=== PATIENT | male | born 1945 | race Caucasian/White ===

== ENCOUNTER → 2017-01-10 | Outpatient (CLI) | payer BC ==
[~2017-01-10] MED LIST: AMLO1TAB95 PO; ASPI-39 PO; CIME400T PO; INDA2.5T PO; LOVA10TA PO; MELO-150 PO; MULT-138 PO; TAMS0.4C2 PO
--- NOTE | 2017-01-10 15:07 | RAD ---
EXAM: Renal sonogram. HISTORY: Renal cysts. TECHNIQUE: Sonographic imaging of the kidneys and bladder was performed. COMPARISON: MRI dated 06/07/2016. FINDINGS: The exam is limited due to bowel gas and body habitus. The right kidney measures 12.8 cm cfgm-ga-mkme and the left kidney measures 12.1 cm lquv-gi-ucik. The right renal pelvis appears dilated. There is a 3.7 cm cyst within the mid zone of the left kidney. The aorta and inferior vena cava are predominant obscured due to bowel gas. The ureteral jets are both seen. IMPRESSION: 1. 3.7 cm left renal cyst. This is similar compared to the prior MRI, allowing for differences in imaging modality. The additional smaller bilateral renal cysts demonstrated on the prior study are not seen sonographically. Also, a 9 mm indeterminate lesion within the right kidney on the prior CT is not seen sonographically. This remains indeterminate. 2. Prominent right renal pelvis, possibly due to slight pelviectasis. This is not within limits to suggest hydronephrosis.
== END | disposition home or self-care (01) ==
LOC: US 13:32
PROVIDERS: ATTEND Urology
DX: N28.1 Cyst of kidney, acquired (principal)
CPT/HCPCS: 76770

== ENCOUNTER → 2017-08-31 | Outpatient (CLI) | payer BC, MEDICARE ==
[~2017-08-31] MED LIST changes: -MELO-150 PO; +MELO15TA23 PO
--- NOTE | 2017-08-31 10:12 | CARD ---
APPROVED REPORT EXAM: Two-dimensional and M-mode echocardiogram with Doppler and color Doppler. Other Information Quality : Average Rhythm : NSR INDICATION Abnormal ECG 2D DIMENSIONS RVDd3.5 (2.9-3.5cm)Left Atrium(2D)3.9 (1.6-4.0cm) IVSd1.0 (0.7-1.1cm)Aortic Root(2D)3.1 (2.0-3.7cm) LVDd5.1 (3.9-5.9cm)LVOT Diameter2.0 (1.8-2.4cm) PWd1.0 (0.7-1.1cm)LVDs3.4 (2.5-4.0cm) FS (%) 32.9 %SV74.3 ml LVEF(%)61.1 (>50%) Aortic Valve AoV Peak [place].268.9cm/sAoV VTI69.3cm AO Peak GR.28.9mmHgLVOT Peak [place].103.6cm/s LVOT VTI 28.62cmAO Mean GR.15mmHg CONCEPCIÓN (VTI)1.49pk1XJ P 1/2 Pdny908rz Mitral Valve MV E Uktlowhi47.2cm/sMV DECEL NGQP429qj MV A Ugkfdsiz28.0cm/sMV YUT19zk E/A Ratio0.9MV A Mfnqvqhr219dn MVA (PHT)3.42cm2 TDI E/Lateral E'10.8E/Medial E'12.9 Pulmonary Valve PV Peak Kpcicxul947.9cm/sPV Peak Grad.6mmHg RVOT VTI29.9cm Pulmonary Vein S1 Vjrojwzh65.2cm/sD2 Iqysrlcs47.8cm/s LEFT VENTRICLE The left ventricle is normal size. There is normal left ventricular wall thickness. Left ventricle sy stolic function is normal. The Ejection Fraction is 60-65%. There is normal LV segmental wall motion. The left ventricular diastolic function and filling is normal for age. There is no ventricular septa l defect visualized. RIGHT VENTRICLE The right ventricle is normal size. The right ventricular systolic function is normal. ATRIA The left atrium size is normal. The right atrium size is normal. The interatrial septum is intact wit h no evidence for an atrial septal defect or patent foramen ovale as noted on 2-D or Doppler imaging. AORTIC VALVE The aortic valve is calcified and displays decreased opening. Doppler and Color Flow revealed mild ao rtic regurgitation. Calculated aortic valve area is 1.3 cm2 with maximum pressure gradient of 29 mmHg and mean pressure gradient of 15 mmH. There is moderate valvular aortic stenosis. MITRAL VALVE Mitral annular calcification is mild. There is no mitral valve stenosis. Doppler and Color Flow revea led mild mitral regurgitation. TRICUSPID VALVE The tricuspid valve is normal in structure and function. Doppler and Color Flow revealed no tricuspid valve regurgitation noted. There is no tricuspid valve stenosis. PULMONIC VALVE The pulmonic valve is not well visualized. Doppler and Color Flow revealed no pulmonic valvular regur gitation. There is no pulmonic valvular stenosis. GREAT VESSELS The aortic root is normal in size. Normal pulmonary venous flow (Doppler). The IVC is normal in size and collapses >50% with inspiration. PERICARDIAL EFFUSION There is no evidence of significant pericardial effusion. Critical Notification Critical Value: No <Conclusion> The left ventricle is normal size. Left ventricle systolic function is normal. The Ejection Fraction is 60-65%. The aortic valve is calcified and displays decreased opening. Calculated aortic valve area is 1.3 cm2 with maximum pressure gradient of 29 mmHg and mean pressure g radient of 15 mmH. There is moderate valvular aortic stenosis. Doppler and Color Flow revealed mild aortic regurgitation. Doppler and Color Flow revealed mild mitral regurgitation. Doppler and Color Flow revealed no tricuspid valve regurgitation noted.
== END | disposition home or self-care (01) ==
LOC: ECHO 07:16
PROVIDERS: ATTEND Nurse Practitioner Occupational Health
DX: I08.0 Rheumatic disorders of both mitral and aortic valves (principal); R94.31 Abnormal electrocardiogram [ECG] [EKG]
CPT/HCPCS: 93306

== ENCOUNTER → 2018-04-04 | Outpatient (CLI) | payer BC | END | disposition home or self-care (01) | LOC: ECHO 07:19 | DX: I08.2 Rheumatic disorders of both aortic and tricuspid valves (principal) | CPT/HCPCS: 93306 ==

== ENCOUNTER → 2019-04-03 | Outpatient (CLI) | payer OTHER ==
--- NOTE | 2019-04-03 09:09 | CARD ---
MR#: [id number] Date of Study: 04/03/2019 Ordering Physician: SUSHMA ESTEBAN, Referring Physician: SUSHMA ESTEBAN, Tech: Yessica Manning [facility] APPROVED REPORT EXAM: Two-dimensional and M-mode echocardiogram with Doppler and color Doppler. Other Information Quality : AverageHR: 55bpm Rhythm : Bradycardia INDICATION 2D DIMENSIONS RVDd3.7 (2.9-3.5cm)Left Atrium(2D)4.3 (1.6-4.0cm) IVSd1.1 (0.7-1.1cm)Aortic Root(2D)3.1 (2.0-3.7cm) LVDd5.4 (3.9-5.9cm)LVOT Diameter2.1 (1.8-2.4cm) PWd1.2 (0.7-1.1cm)LVDs3.8 (2.5-4.0cm) FS (%) 30.1 %SV80.4 ml LVEF(%)56.8 (>50%) M-Mode DIMENSIONS Left Atrium(MM)4.17 (2.5-4.0cm)Aortic Root2.91 (2.2-3.7cm) Aortic Valve AoV Peak [place].315.5cm/sAoV VTI74.4cm AO Peak GR.39.8mmHgLVOT Peak [place].109.2cm/s AO Mean GR.22mmHgAVA (VMAX)1.18cm2 CONCEPCIÓN (VTI)1.58mk9MW P 1/2 Mydo172tt Mitral Valve MV E Gbphvhiz61.6cm/sMV E Peak Gr.6mmHg MV DECEL RSDE750xbFE A Ggxujsji382.5cm/s MV E Mean Gr.2mmHgE/A Ratio0.8 MV A Ncnpdgry055gv Pulmonary Valve PV Peak Tiyosmge715.6cm/s Tricuspid Valve TR P. Rlxvouia035xy/sRAP CXYZJLUS2zaEd TR Peak Gr.01vrUuZRFX99ftTf LEFT VENTRICLE The left ventricle is normal size. There is mild concentric left ventricular hypertrophy. The left ve ntricular systolic function is normal and the ejection fraction is within normal range. The Ejection Fraction is 55-60%. There is normal LV segmental wall motion. Transmitral Doppler flow pattern is Gra de I-abnormal relaxation pattern. RIGHT VENTRICLE The right ventricle is mildly dilated. There is normal right ventricular wall thickness. The right ve ntricular systolic function is normal. ATRIA The left atrium is mildly dilated. The right atrium is mildly dilated. The interatrial septum is inta ct with no evidence for an atrial septal defect or patent foramen ovale as noted on 2-D or Doppler im aging. AORTIC VALVE The aortic valve is calcified and displays decreased opening. The aortic valve is trileaflet. Doppler and Color Flow revealed mild aortic regurgitation. There is moderate valvular aortic stenosis. Calcu lated aortic valve area is 1.2 cm2 with maximum pressure gradient of 40 mmHg and mean pressure gradie nt of 22 mmHg. MITRAL VALVE The mitral valve is thickened but opens well. There is no evidence of mitral valve prolapse. There is no mitral valve stenosis. Doppler and Color-flow revealed mild mitral regurgitation. TRICUSPID VALVE The tricuspid valve is normal in structure and function. Doppler and Color Flow revealed trace tricus pid regurgitation. The PA pressure was estimated at 25 mmHg. There is no tricuspid valve prolapse or vegetation. There is no tricuspid valve stenosis. PULMONIC VALVE The pulmonic valve is not well visualized. GREAT VESSELS The aortic root is normal in size. The ascending aorta is normal in size. The IVC is normal in size a nd collapses >50% with inspiration. PERICARDIAL EFFUSION There is no evidence of significant pericardial effusion. Critical Notification Critical Value: No <Conclusion> The left ventricular systolic function is normal and the ejection fraction is within normal range. Th e Ejection Fraction is 55-60%. There is normal LV segmental wall motion. There is moderate valvular aortic stenosis. Calculated aortic valve area is 1.2 cm2 with maximum pre ssure gradient of 40 mmHg and mean pressure gradient of 22 mmHg. Signed by : Sushma Esteban, Electronically Approved : 04/03/2019 09:09:15
== END | disposition home or self-care (01) ==
LOC: ECHO 07:51
PROVIDERS: ATTEND Internal Medicine Cardiovascular Disease
DX: I08.0 Rheumatic disorders of both mitral and aortic valves (principal)
CPT/HCPCS: 93306

== ENCOUNTER → 2019-05-01 | Outpatient (CLI) | payer OTHER ==
--- NOTE | 2019-05-01 12:57 | RAD ---
MR#: [id number] Date of Study: 05/01/2019 Ordering Physician: SUSHMA ESTEBAN Referring Physician: ZEKE DOMINGUEZ Tech: APPROVED REPORT Test Type: Exercise Stress Nurse/Tech: Aida Pelaez RN Test Indications: Aortic Stenosis Cardiac History: Hypertension,former smoker Medications: See Electronic Medical Record Medical History: See Electronic Medical Record Resting ECG: SB with BBB Resting Heart Rate: 53 bpm Resting Blood Pressure: 140/60mmHg Pretest Chest Pain: No chest pain Nurse/Tech Notes S1,S2 with regurgitation. Lungs are clear to auscultation. Consent: The procedure was explained to the patient in lay terms. Informed consent was witnessed. Ismael eout was entered into [facility] [facility]. History and Stress Test performed by Marta Bocanegra, RT (R) (N) Stress Symptoms Claudication,Fatigue POST EXERCISE Reason for Termination: Reached target heart rate, Fatigue Target HR: Yes Max HR: 141 bpm 113% of Maximum Predicted HR: 124 bpm Exercise duration: 3:40 min:sec, 2 Stage Exercise capacity: 7.0METs Max Blood Pressure: 175/64mmHg Blood Pressure response to exercise: Normal blood pressure response during stress. Heart Rate response to exercise: WNL Chest Pain: No. Arrhythmia: No. ST Change: Yes. non diagnostic INTERPRETATION Stress EKG Conclusion: Baseline EKG showed sinus rhythm. Mild Horizontal ST depression inferolateral leads suspicious but does not meet diagnostic criteria for ischemia. No arrhythmias. Conclusion 1. Treadmill exercise stress electrocardiogram showed mild ST depressions inferolateral leads suspici ous but does not meet diagnostic criteria for ischemia. Patient had poor activity tolerance. Recommen d imaging study. Signed by : Fredi Marie, Electronically Approved : 05/01/2019 12:57:10
== END | disposition home or self-care (01) ==
LOC: NM 07:55
PROVIDERS: ATTEND Internal Medicine Cardiovascular Disease
DX: I35.0 Nonrheumatic aortic (valve) stenosis (principal); I10 Essential (primary) hypertension; Z87.891 Personal history of nicotine dependence
CPT/HCPCS: 93017

== ENCOUNTER → 2020-03-05 | Outpatient (CLI) | payer MEDICARE ==
--- NOTE | 2020-03-05 13:56 | CARD ---
MR#: [id number] Date of Study: 03/05/2020 Ordering Physician: SUSHMA ESTEBAN, Referring Physician: USSHMA ESTEBAN, Tech: [facility] APPROVED REPORT EXAM: Two-dimensional and M-mode echocardiogram with Doppler and color Doppler. Other Information Quality : Good INDICATION Hypertension/HCVD 2D DIMENSIONS RVDd2.7 (2.9-3.5cm)Left Atrium(2D)4.4 (1.6-4.0cm) IVSd1.9 (0.7-1.1cm)Aortic Root(2D)3.1 (2.0-3.7cm) LVDd5.1 (3.9-5.9cm)LVOT Diameter2.1 (1.8-2.4cm) PWd1.4 (0.7-1.1cm)LVDs4.0 (2.5-4.0cm) FS (%) 20.3 %SV49.9 ml LVEF(%)55.0 (>50%) Aortic Valve AoV Peak [place].331.5cm/sAoV VTI77.0cm AO Peak GR.44.0mmHgLVOT Peak [place].161.2cm/s AO Mean GR.24mmHgAVA (VTI)1.70cm2 AI P 1/2 Mxam685ht Mitral Valve MV E Yprlopql525.2cm/sMV DECEL JMZD924wa MV A Mnfhflah596.9cm/sE/A Ratio0.8 Tricuspid Valve TR P. Gryapcjo751vf/sRAP LMCQMCRG7bbPo TR Peak Gr.44nhGiWPWT61amAm Pulmonary Vein S1 Lwtqwtta87.5cm/sD2 Wqmyrmsg62.7cm/s LEFT VENTRICLE The left ventricle is normal size. There is normal left ventricular wall thickness. The left ventricu lar systolic function is normal. The Ejection Fraction is 60%. There is normal LV segmental wall blanca on. Transmitral Doppler flow pattern is Grade I-abnormal relaxation pattern. RIGHT VENTRICLE The right ventricle is normal size. The right ventricular systolic function is normal. ATRIA The left atrium is mildly dilated. The right atrium is mildly dilated. The interatrial septum is inta ct with no evidence for an atrial septal defect or patent foramen ovale as noted on 2-D or Doppler im aging. AORTIC VALVE The aortic valve is severely calcified and displays decreased opening; possibly bicuspid. Doppler and Color Flow revealed mild aortic regurgitation. Moderate aortic stenosis with maximum pressure gradie nt of 44 mmHg and mean pressure gradient of 24 mmHg. MITRAL VALVE The mitral valve is normal in structure and function. There is no evidence of mitral valve prolapse. There is no mitral valve stenosis. Doppler and Color-flow revealed trace mitral regurgitation. TRICUSPID VALVE The tricuspid valve is normal in structure and function. Doppler and Color Flow revealed trace tricus pid regurgitation. The PA pressure was estimated at 20 mmHg. There is no tricuspid valve stenosis. PULMONIC VALVE The pulmonic valve is not well visualized. Doppler and Color Flow revealed no pulmonic valvular regur gitation. There is no pulmonic valvular stenosis. GREAT VESSELS The aortic root is normal in size. The ascending aorta is normal in size. The IVC is normal in size a nd collapses >50% with inspiration. PERICARDIAL EFFUSION There is no evidence of significant pericardial effusion. Critical Notification Critical Value: No <Conclusion> The left ventricular systolic function is normal. The Ejection Fraction is 60%. There is normal LV segmental wall motion. Transmitral Doppler flow pattern is Grade I-abnormal relaxation pattern. Moderate aortic stenosis with maximum pressure gradient of 44 mmHg and mean pressure gradient of 24 m mHg. Mild aortic regurgitation. Trace mitral regurgitation. Trace tricuspid regurgitation. The PA pressure was estimated at 20 mmHg. There is no evidence of significant pericardial effusion. Signed by : Fredi Marie, Electronically Approved : 03/05/2020 13:55:40
== END | disposition home or self-care (01) ==
LOC: ECHO 12:34
PROVIDERS: ATTEND Internal Medicine Cardiovascular Disease
DX: I35.1 Nonrheumatic aortic (valve) insufficiency (principal); I11.9 Hypertensive heart disease without heart failure
CPT/HCPCS: 93306

== ENCOUNTER → 2020-08-21 | Outpatient (CLI) | payer MEDICARE ==
--- NOTE | 2020-08-21 14:38 | CARD ---
MR#: [id number] Date of Study: 08/21/2020 Ordering Physician: SUSHMA ESTEBAN, Referring Physician: SUSHMA ESTEBAN, Tech: Nyla Richardson APPROVED REPORT EXAM: Two-dimensional and M-mode echocardiogram with Doppler and color Doppler. INDICATION Aortic Valve Disease RISK FACTORS Hypertension Hyperlipidemia 2D DIMENSIONS RVDd3.8 (2.9-3.5cm)Left Atrium(2D)4.0 (1.6-4.0cm) IVSd1.1 (0.7-1.1cm)Aortic Root(2D)3.0 (2.0-3.7cm) LVDd5.9 (3.9-5.9cm)LVOT Diameter2.0 (1.8-2.4cm) PWd1.2 (0.7-1.1cm)LVDs2.8 (2.5-4.0cm) FS (%) 52.0 %SV143.1 ml Aortic Valve AoV Peak [place].261.3cm/sAoV VTI62.3cm AO Peak GR.27.3mmHgLVOT Peak [place].129.3cm/s LVOT VTI 35.15cmAO Mean GR.16mmHg CONCEPCIÓN (VMAX)1.28sa2LEP (VTI)1.80cm2 Mitral Valve MV E Szlvoqcr872.2cm/sMV DECEL JOKI353sq MV A Vgchqqwk019.0cm/sMV RJY30iv E/A Ratio1.0MVA (PHT)3.57cm2 TDI E/Lateral E'16.0E/Medial E'11.5 Pulmonary Valve PV Peak Irhgxqrn146.8cm/sPV Peak Grad.5mmHg Tricuspid Valve TR P. Qfddbjrz980wx/sRAP ZMPBHQLU6laWx TR Peak Gr.28mmHg Pulmonary Vein S1 Bfqvtqyv08.4cm/sD2 Tbcaagzk02.0cm/s PVa cuogjhwl320gxhg LEFT VENTRICLE The left ventricle is normal size. There is borderline to mild concentric left ventricular hypertroph y. The left ventricular systolic function is normal and the ejection fraction is within normal range. The Ejection Fraction is 55-60%. There is normal LV segmental wall motion. Transmitral Doppler flow pattern is Grade II-pseudonormal filling dynamics. RIGHT VENTRICLE The right ventricle is normal size. There is normal right ventricular wall thickness. The right ventr icular systolic function is normal. ATRIA The left atrium is borderline dilated. The right atrium size is normal. The interatrial septum is int act with no evidence for an atrial septal defect or patent foramen ovale as noted on 2-D or Doppler i maging. AORTIC VALVE The aortic valve is calcified and displays decreased opening. Doppler and Color Flow revealed trace a ortic regurgitation. Calculated aortic valve area is 36 cm2 with maximum pressure gradient of 19 mmHg and mean pressure gradient of 1.74 mmHg. There is mild valvular aortic stenosis. MITRAL VALVE The mitral valve is thickened but opens well. There is no evidence of mitral valve prolapse. There is no mitral valve stenosis. Doppler and Color-flow revealed trace mitral regurgitation. TRICUSPID VALVE The tricuspid valve is normal in structure and function. Doppler and Color Flow revealed trace tricus pid regurgitation with an estimated PAP of 31 mmHg. There is no tricuspid valve stenosis. PULMONIC VALVE The pulmonic valve is not well visualized. Doppler and Color Flow revealed no pulmonic valvular regur gitation. GREAT VESSELS The aortic root is normal in size. The IVC was not well visualized. PERICARDIAL EFFUSION There is no evidence of significant pericardial effusion. Critical Notification Critical Value: No <Conclusion> The left ventricle is normal size. The left ventricular systolic function is normal and the ejection fraction is within normal range. The Ejection Fraction is 55-60%. There is borderline to mild concentric left ventricular hypertrophy. Doppler and Color Flow revealed trace aortic regurgitation. Calculated aortic valve area is 36 cm2 with maximum pressure gradient of 19 mmHg and mean pressure gr adient of 1.74 mmHg. There is mild valvular aortic stenosis. Doppler and Color-flow revealed trace mitral regurgitation. Doppler and Color Flow revealed trace tricuspid regurgitation with an estimated PAP of 31 mmHg. Signed by : Qamar Purcell MD Electronically Approved : 08/21/2020 14:37:40
== END ==
LOC: ECHO 10:45
PROVIDERS: ATTEND Internal Medicine Cardiovascular Disease
DX: I35.1 Nonrheumatic aortic (valve) insufficiency (principal); I51.7 Cardiomegaly
CPT/HCPCS: 93306

== ENCOUNTER → 2021-08-18 | Outpatient (CLI) | payer MEDICARE ==
--- NOTE | 2021-08-18 16:34 | CARD ---
MR#: [id number] Date of Study: 08/18/2021 Ordering Physician: SUSHMA ESTEBAN, Referring Physician: SUSHMA ESTEBAN, Tech: Nyla Richardson, [facility] APPROVED REPORT EXAM: Two-dimensional and M-mode echocardiogram with Doppler and color Doppler. Other Information Quality : AverageHR: 51bpm INDICATION Aortic Valve Disease RISK FACTORS Hypertension Hyperlipidemia 2D DIMENSIONS RVDd3.7 (2.9-3.5cm)Left Atrium(2D)4.1 (1.6-4.0cm) IVSd1.0 (0.7-1.1cm)Aortic Root(2D)3.1 (2.0-3.7cm) LVDd5.4 (3.9-5.9cm)LVOT Diameter2.1 (1.8-2.4cm) PWd1.3 (0.7-1.1cm)LVDs3.5 (2.5-4.0cm) FS (%) 35.4 %SV90.2 ml LVEF(%)64.3 (>50%) Aortic Valve AoV Peak [place].324.3cm/sAoV VTI74.6cm AO Peak GR.42.1mmHgLVOT Peak [place].113.2cm/s LVOT VTI 29.95cmAO Mean GR.23mmHg CONCEPCIÓN (VTI)1.76fj4EX P 1/2 Txhe706zu Mitral Valve MV E Fvsejukx67.0cm/sMV DECEL ZFOY004qa MV A Bsubgryw285.3cm/sMV E Mean Gr.2mmHg MV BYT31atA/A Ratio0.9 MVA (PHT)3.61cm2 TDI E/Lateral E'12.7E/Medial E'17.0 Pulmonary Valve PV Peak Gfkkcdux875.4cm/sPV Peak Grad.4mmHg Tricuspid Valve TR P. Ojzbmulf671wn/sRAP ZUYZMEFK0ltHr TR Peak Gr.83awVzFZDV82nnGn Pulmonary Vein S1 Hcurmyap26.8cm/sD2 Kgntlqvv87.2cm/s PVa gatwbdgz543psjj LEFT VENTRICLE The left ventricle is normal size. There is mild to moderate concentric left ventricular hypertrophy. The left ventricular systolic function is normal. The Ejection Fraction is 55-60%. There is normal L V segmental wall motion. Transmitral Doppler flow pattern is Grade I-abnormal relaxation pattern. RIGHT VENTRICLE The right ventricle is normal size. There is normal right ventricular wall thickness. The right ventr icular systolic function is normal. ATRIA The left atrium size is normal. The right atrium size is normal. The interatrial septum is intact wit h no evidence for an atrial septal defect or patent foramen ovale as noted on 2-D or Doppler imaging. AORTIC VALVE The aortic valve is calcified and displays decreased opening. Doppler and Color Flow revealed mild ao rtic regurgitation. Calculated aortic valve area is 1.43 cm2 with maximum pressure gradient of 47 mmH g and mean pressure gradient of 25 mmHg. There is moderate valvular aortic stenosis. MITRAL VALVE The mitral valve is normal in structure and function. There is no evidence of mitral valve prolapse. There is no mitral valve stenosis. Doppler and Color-flow revealed trace mitral regurgitation. TRICUSPID VALVE The tricuspid valve is normal in structure and function. Doppler and Color Flow revealed trace tricus pid regurgitation with an estimated PAP of 35 mmHg. There is no tricuspid valve stenosis. PULMONIC VALVE The pulmonic valve is not well visualized. Doppler and Color Flow revealed no pulmonic valvular regur gitation. GREAT VESSELS The aortic root is normal in size. The ascending aorta is normal in size. The IVC was not well visual ized. PERICARDIAL EFFUSION There is no evidence of significant pericardial effusion. Critical Notification Critical Value: No <Conclusion> The left ventricular systolic function is normal. The Ejection Fraction is 55-60%. There is normal LV segmental wall motion. Transmitral Doppler flow pattern is Grade I-abnormal relaxation pattern. Moderate valvular aortic stenosis with mean gradient 25 mmHg. Mild aortic regurgitation. Trace mitral regurgitation. Trace tricuspid regurgitation with an estimated PAP of 35 mmHg. There is no evidence of significant pericardial effusion. Signed by : Fredi Marie, Electronically Approved : 08/18/2021 16:33:47
== END ==
LOC: ECHO 09:43
PROVIDERS: ATTEND Internal Medicine Cardiovascular Disease
DX: I35.1 Nonrheumatic aortic (valve) insufficiency (principal); Q25.3 Supravalvular aortic stenosis; I51.7 Cardiomegaly
CPT/HCPCS: 93306